=== PATIENT | male | born 1970 | race Caucasian/White ===

== ENCOUNTER 2017-10-21 13:01 | Observation (INO) | payer OTHER ==
--- NOTE | 2017-10-21 13:12 | EDPHY ---
H & P Time Seen by Provider: 10/21/17 13:10 HPI/ROS: CHIEF COMPLAINT: Irregular heartbeat HISTORY OF PRESENT ILLNESS: This patient is a healthy 46 y/o male presenting for evaluation of irregular heartbeat. He felt well yesterday, but woke this morning with a pounding heart sensation. This has happened a couple times in the past, but generally resolves quickly on its own. Today, this feeling has not resolved, and he has felt lightheaded upon standing. No other associated sx. He had three alcoholic drinks last night, which is unusual for him. He denies known personal history of heart problems, but his family history is positive for atrial fibrillation in his father. His last oral intake was oatmeal and coffee about two hours prior to arrival. He was noted to be hypotensive at triage at 87/70, and states he generally has low blood pressure between 90-100 systolic. He denies any recent illness, cough, cold, or fever. He denies chest pain or shortness of breath. No nausea, vomiting, diarrhea, urinary complaints, or other associated symptoms. REVIEW OF SYSTEMS: A 10 point review of systems was performed and is negative with the exception of the elements mentioned in the history of present illness. Past Medical/Surgical History: Denies. Social History: Nonsmoker. . Lives in [place]. Smoking Status: Never smoked Physical Exam: General Appearance: Alert, pleasant Eyes: Pupils equal and round, no conjunctival pallor or injection ENT, Mouth: Mucous membranes moist Neck: Normal inspection Respiratory: Lungs are clear to auscultation Cardiovascular: Irregularly irregular tachycardia Gastrointestinal: Abdomen is soft and non-tender Neurological: A&O, nonfocal exam Skin: Warm and dry, no rash Extremities: Nontender, no pedal edema Psychiatric: Mood and affect normal Constitutional: Initial Vital Signs Temperature (C) 36.5 C 10/21/17 13:03 Heart Rate 75 10/21/17 13:03 Respiratory Rate 18 10/21/17 13:03 Blood Pressure 87/70 L 10/21/17 13:03 O2 Sat (%) 98 10/21/17 13:03 O2 Delivery Mode Room Air Allergies/Adverse Reactions: No Known Allergies Allergy (Verified 10/21/17 13:06) Home Medications: Medication Instructions Recorded Herbals/Supplements -Info Only 1 ea PO AD 12/31/17 Multivitamins [Multivitamin (*)] 1 each PO DAILY 10/21/17 Medical Decision Making - Diagnostics EKG Interpretation: EKG interpreted by me reveals atrial fibrillation, ventricular rate 114, no ST/ T changes. Interpretation: abnormal EKG, atrial fibrillation with RVR Imaging Results: Imaging Impressions Chest X-Ray 10/21/17 14:03 Impression: Nothing acute identified. Imaging: I viewed and interpreted images myself ED Course/Re-evaluation: 46 y/o male presents for evaluation of irregular heartbeat. On exam, he has irregularly irregular tachycardia. EKG shows atrial fibrillation, ventricular rate 114. The patient was hypotensive at triage at 87/70. IV established. Plan to administer 1L IV NS to increase the patient's blood pressure prior to administration of antiarrhythmic medications. Plan for labs including CBC, BMP, D-dimer, TSH. 13:54 Patient's BP 110/79. Plan to administer 10mg IV Diltiazem for rate control. Plan for chest x-ray. Patient initially declined antiarrhythmic medication in favor of attempting to control his heart rate with meditation, but upon further discussion, he agrees to proceed with Diltiazem administration. Discussed admission as well. He agrees to admission for further evaluation. Chest x-ray negative for acute processes. Labs reviewed. D-dimer is negative. Labs otherwise unremarkable. Blood pressure remains stable at 118/68. Blood pressure 90/60 after IV diltiazem 10 mg. 14:[address] Yuan, hospitalist. He accepts admission for rapid atrial fibrillation. 15:15 The patient remains in atrial fibrillation, with a ventricular rate of 72 , blood pressure 89/67. He normally has a low blood pressure and is asymptomatic with this blood pressure. IV fluids infusing. Differential Diagnosis: Differential diagnosis includes though it is not limited to pneumonia, pneumothorax, pulmonary embolism, aortic dissection, pericarditis, acute coronary syndrome. Critical Care Time: I spent a total of 35 minutes of critical care time in obtaining history, performing a physical exam, bedside monitoring of interventions, collecting and interpreting tests and discussion with consultants but not including time spent performing procedures. - Data Points Laboratory Results: Laboratory Results 10/21/17 13:15 10/21/17 13:15 10/21/17 10/21/17 10/21/17 13:15 13:15 13:15 WBC 7.76 10^3/uL 10^3/uL (3.80-9.50) RBC 5.47 10^6/uL 10^6/uL (4.40-6.38) Hgb 17.4 g/dL g/dL (13.7-17.5) Hct 49.2 % % (40.0-51.0) MCV 89.9 fL fL (81.5-99.8) MCH 31.8 pg pg (27.9-34.1) MCHC 35.4 g/dL g/dL (32.4-36.7) RDW 13.1 % % (11.5-15.2) Plt Count 225 10^3/uL 10^3/uL (150-400) MPV 10.2 fL fL (8.7-11.7) Neut % (Auto) 58.6 % % (39.3-74.2) Lymph % (Auto) 29.6 % % (15.0-45.0) [place] % (Auto) 9.5 % % (4.5-13.0) Eos % (Auto) 1.5 % % (0.6-7.6) Baso % (Auto) 0.5 % % (0.3-1.7) Nucleat RBC Rel Count 0.0 % % (0.0-0.2) Absolute Neuts (auto) 4.54 10^3/uL 10^3/uL (1.70-6.50) Absolute Lymphs (auto) 2.30 10^3/uL 10^3/uL (1.00-3.00) Absolute Monos (auto) 0.74 10^3/uL 10^3/uL (0.30-0.80) Absolute Eos (auto) 0.12 10^3/uL 10^3/uL (0.03-0.40) Absolute Basos (auto) 0.04 10^3/uL 10^3/uL (0.02-0.10) Absolute Nucleated RBC 0.00 10^3/uL 10^3/uL (0-0.01) Immature Gran % 0.3 % % (0.0-1.1) Immature Gran # 0.02 10^3/uL 10^3/uL (0.00-0.10) D-Dimer < 0.27 ug/mLFEU ug/mLFEU (0.00-0.50) Sodium 144 mEq/L mEq/L (134-144) Potassium 4.2 mEq/L mEq/L (3.5-5.2) Chloride 106 mEq/L mEq/L (97-110) Carbon Dioxide 28 mEq/l mEq/l (22-31) Anion Gap 10 mEq/L mEq/L (8-16) BUN 15 mg/dL mg/dL (7-23) Creatinine 0.9 mg/dL mg/dL (0.7-1.3) Estimated GFR > 60 Glucose 97 mg/dL mg/dL (70-100) Calcium 10.0 mg/dL mg/dL (8.5-10.4) TSH 3.440 uIU/mL uIU/mL (0.465-4.680) Medications Given: Discontinued Medications Diltiazem HCl (Cardizem 25 Mg/5 Ml Vial) 10 mg IVP EDNOW ONE Stop: 10/21/17 13:55 Last Admin: 10/21/17 14:37 Dose: 10 mg Sodium Chloride (Ns) 1,000 mls @ 0 mls/hr IV ONCE ONE; Wide Open PRN Reason: Protocol Stop: 10/21/17 13:21 Last Admin: 10/21/17 13:34 Dose: 1,000 mls Departure - Departure Disposition: [facility] Inpatient Acute Clinical Impression: Atrial fibrillation with RVR Condition: Fair Report Scribed for: Sofy Salguero Report Scribed by: Anahy Rothman Date of Report: 10/21/17 Time of Report: 13:12 Physician Review and Approval Statement: 10/21/17 13:12 Portions of this note were transcribed by a biomedical electronics technician. I personally performed a history, physical exam, medical decision making, and confirmed accuracy of information the transcribed note.
--- NOTE | 2017-10-21 13:13 | CPEKG ---
Heart Rate: 114 RR Interval: 526 QRSD Interval: 80 QT Interval: 324 QTC Interval: 447 QRS [place]: 57 T Wave [place]: 67 EKG Severity - ABNORMAL ECG - EKG Impression: ATRIAL FIBRILLATION, V-RATE 67-143 EKG Impression: BORDERLINE T ABNORMALITIES, ANT-LAT LEADS Electronically Signed By: Sofy Salguero 21-Oct-2017 15:52:55
[2017-10-21 13:20] LABS: PLATELET COUNT 225 10^3/uL (150-400)
[2017-10-21] MEDS ORDERED: NS 1,000 ML IV ONE (13:20)
[2017-10-21] MEDS ORDERED: DILTIAZEM 25 MG/5 ML VIAL IVP ONE (13:54)
--- NOTE | 2017-10-21 14:44 | PDGENHP ---
History and Physical - Chief Complaint irregular heart beat - History of Present Illness 46 y/o male awoke at 0600 with an irregular heart beat. Some lightheadedness with standing. No chest pain or shortness of breath. Reports episodes of palpitations in the past usually associated with alcohol. Reports having 3 whiskey drinks last night. He was given 5 mg of IV diltiazem in the emergency department which is did improve his rate. History Information - Allergies/Home Medication List Allergies/Adverse Reactions: No Known Allergies Allergy (Verified 10/21/17 13:06) Home Medications: Herbals/Supplements -Info Only 1 ea PO AD 10/21/17 [Last Taken Unknown] Multivitamins [Multivitamin (*)] 1 each PO DAILY 10/21/17 [Last Taken 10/20/17] I have personally reviewed and updated: family history, medical history, social history, surgical history - Past Medical History Additional medical history: none - Surgical History Additional surgical history: bilat knee scopes - Social History Smoking Status: Never smoked Alcohol Use: Occasionally Drug Use: None Review of Systems Review of Systems: ROS: 10pt was reviewed & negative except for what was stated in HPI & below Respiratory: Reports: other (apnea) Physical Exam Physical Exam: Temp Pulse Resp BP Pulse Ox 36.5 C 133 H 16 118/68 96 10/21/17 13:03 10/21/17 14:25 10/21/17 14:25 10/21/17 14:25 10/21/17 14:25 Constitutional: no apparent distress, appears nourished, not in pain Eyes: PERRL, anicteric sclera, EOMI Ears, Nose, Mouth, Throat: moist mucous membranes, hearing normal, ears appear normal, no oral mucosal ulcers Cardiovascular: no murmur, rub, or gallop, irregularly irregular, No JVD, No edema Respiratory: no respiratory distress, no rales or rhonchi, clear to auscultation Gastrointestinal: normoactive bowel sounds, soft, non-tender abdomen, no palpable masses Genitourinary: no bladder fullness, no bladder tenderness Skin: warm, normal color, no rashes or abrasions, no fluctuance, no induration, No mottled Musculoskeletal: full muscle strength, no muscle tenderness, normal joint ROM, no joint effusions Neurologic: AAOx3, CN II-XII Intact, No facial droop Psychiatric: interacting appropriately, not anxious, not encephalopathic, thought process linear Lymph, Heme, Immunologic: no cervical LAD, no supraclavicular LAD Lab Data & Imaging Review 10/21/17 13:15 10/21/17 13:15 WBC 7.76 10^3/uL (3.80-9.50) 10/21/17 13:15 RBC 5.47 10^6/uL (4.40-6.38) 10/21/17 13:15 Hgb 17.4 g/dL (13.7-17.5) 10/21/17 13:15 Hct 49.2 % (40.0-51.0) 10/21/17 13:15 MCV 89.9 fL (81.5-99.8) 10/21/17 13:15 MCH 31.8 pg (27.9-34.1) 10/21/17 13:15 MCHC 35.4 g/dL (32.4-36.7) 10/21/17 13:15 RDW 13.1 % (11.5-15.2) 10/21/17 13:15 Plt Count 225 10^3/uL (150-400) 10/21/17 13:15 MPV 10.2 fL (8.7-11.7) 10/21/17 13:15 Neut % (Auto) 58.6 % (39.3-74.2) 10/21/17 13:15 Lymph % (Auto) 29.6 % (15.0-45.0) 10/21/17 13:15 [place] % (Auto) 9.5 % (4.5-13.0) 10/21/17 13:15 Eos % (Auto) 1.5 % (0.6-7.6) 10/21/17 13:15 Baso % (Auto) 0.5 % (0.3-1.7) 10/21/17 13:15 Nucleat RBC Rel Count 0.0 % (0.0-0.2) 10/21/17 13:15 Absolute Neuts (auto) 4.54 10^3/uL (1.70-6.50) 10/21/17 13:15 Absolute Lymphs (auto) 2.30 10^3/uL (1.00-3.00) 10/21/17 13:15 Absolute Monos (auto) 0.74 10^3/uL (0.30-0.80) 10/21/17 13:15 Absolute Eos (auto) 0.12 10^3/uL (0.03-0.40) 10/21/17 13:15 Absolute Basos (auto) 0.04 10^3/uL (0.02-0.10) 10/21/17 13:15 Absolute Nucleated RBC 0.00 10^3/uL (0-0.01) 10/21/17 13:15 Immature Gran % 0.3 % (0.0-1.1) 10/21/17 13:15 Immature Gran # 0.02 10^3/uL (0.00-0.10) 10/21/17 13:15 D-Dimer < 0.27 ug/mLFEU (0.00-0.50) 10/21/17 13:15 Sodium 144 mEq/L (134-144) 10/21/17 13:15 Potassium 4.2 mEq/L (3.5-5.2) 10/21/17 13:15 Chloride 106 mEq/L (97-110) 10/21/17 13:15 Carbon Dioxide 28 mEq/l (22-31) 10/21/17 13:15 Anion Gap 10 mEq/L (8-16) 10/21/17 13:15 BUN 15 mg/dL (7-23) 10/21/17 13:15 Creatinine 0.9 mg/dL (0.7-1.3) 10/21/17 13:15 Estimated GFR > 60 10/21/17 13:15 Glucose 97 mg/dL (70-100) 10/21/17 13:15 Calcium 10.0 mg/dL (8.5-10.4) 10/21/17 13:15 TSH 3.440 uIU/mL (0.465-4.680) 10/21/17 13:15 Visualized and Interpreted Chest x-ray results: Yes Chest X-Ray results: no infiltrate, normal Visualized and Interpreted EKG results: Yes EKG additional interpertation: AFib rate 114 beats per minute no acute ischemic changes Assessment & Plan Assessment: A 46-year-old male presenting with: # paroxysmal atrial fibrillation in the setting of alcohol use chads Vasc score of 0 -echocardiogram -continue with p.o. diltiazem -monitor on telemetry -check TSH and magnesium levels -will start on empiric anticoagulation Aidan case the patient does opt for cardioversion Place in observation
[2017-10-21] MEDS ORDERED: Herbals/Supplements -Info Only PO SCH (15:30)
[2017-10-21] MEDS ORDERED: ENOXAPARIN 80 MG/0.8 ML SYR SC ONE (17:23)
[2017-10-21] MEDS: DILTIAZEM 30 MG TAB PO SCH (17:26)
[2017-10-21] MEDS ORDERED: ENOXAPARIN 80 MG/0.8 ML SYR SC SCH (21:00)
[2017-10-22] MEDS: DILTIAZEM 30 MG TAB PO SCH (01:36)
[2017-10-22] MEDS ORDERED: ATROPINE SULFATE 1 MG/10 ML SYR IVP ONE (08:10)
[2017-10-22] MEDS ORDERED: NS 1,000 ML IV ONE (08:10)
--- NOTE | 2017-10-22 08:13 | PDHPUP ---
History & Physical Update H&P update statement: This history and physical update is based on an assessment of the patient which was completed after admission or registration (within 24 hours), but prior to the surgery/procedure. H&P update: H&P reviewed & patient examined, no change in patient's condition since H&P completed
--- NOTE | 2017-10-22 08:43 | GCON ---
[f rep st] CONSULTATION CARDIOLOGY CONSULTATION DATE OF CONSULTATION: 10/22/2017 CHIEF COMPLAINT: Atrial fibrillation. HISTORY OF PRESENT ILLNESS: We were asked by Dr. Yuan to visit with the patient. The patient is a pleasant, 46-year-old male with no known cardiovascular history and no ongoing medical problems. Ove r the past several days, with the holidays, he has been eating out quite a bit, drinking more alcohol than usual. On the evening of October 20 he had 3 whiskey drinks, which is unusual for him. He woke up on the morning of October 21 with palpitations and lightheadedness. He felt that his krysten thing was shallow. No chest pain. No syncope. In retrospect, he does report brief episodes of palp itations that have previously occurred when drinking more alcohol than usual, this happens at night. In general, he is very healthy. He exercises regularly, doing yoga, snowboarding, riding his bike. He has never had exertional palpitations or any sort of exertional chest pain. REVIEW OF SYSTEMS: A full 10-point review of systems performed, is negative except that which is det [place] above. ALLERGIES: No known drug allergies. PAST MEDICAL HISTORY: Knee arthroscopy. OUTPATIENT MEDICATIONS: Multivitamin. No other supplements. SOCIAL HISTORY: The patient is a guidance counselor. He does not smoke cigarettes. He does drink a lcohol and has been drinking more alcohol than is customary for him. He is . FAMILY HISTORY: Notable for atrial fibrillation in his father. No premature coronary disease or sung den cardiac . PHYSICAL EXAM: VITAL SIGNS: Blood pressure 100/68, heart rate 67, in AFib, oxygen saturation 94% on room air, respiratory rate is 12. GENERAL: Well-appearing, middle-aged male in no acute distress. HEENT: Sclerae clear and free of jaundice. Mucous membranes moist. CARDIOVASCULAR: JVP less than 10. HEART: Irregularly irregular rhythm without murmur. No S3. LUNGS: Clear to auscultation tita aterally without wheezes, rhonchi, or rales. ABDOMEN: Soft, nontender, nondistended without bruits, masses or hepatosplenomegaly. EXTREMITIES: Warm and well perfused without cyanosis, clubbing, or e stephany. NEURO: Alert and oriented x3 without gross focal neurologic deficits. LABORATORY DATA: CBC is normal. D-dimer is less than 0.27. Basic metabolic panel is normal. AST i s 70, ALT 79. TSH normal. Albumin normal. Magnesium 1.9. EKG, reviewed by me, atrial fibrillation without ischemic changes. Chest x-ray, reviewed by me, no acute cardiopulmonary process. ASSESSMENT AND PLAN: A 46-year-old male with new onset atrial fibrillation triggered most likely by heavier than usual alcohol use. He is currently hemodynamically stable, but still symptomatic. No e vidence of cardiac ischemia or heart failure. We had a discussion about management strategies includ ing anticoagulation and rate control versus OSWALDO guided cardioversion. He prefers OSWALDO guided cardiove rsion as he is still symptomatic. 1. Atrial fibrillation: As above. OSWALDO cardioversion this morning. He agrees to 1 month of post ca rdioversion Eliquis. Bleeding risks associated with Eliquis were reviewed. Risks, benefits, alterna tives of the procedure were discussed. 2. Elevated liver function tests: This is likely related to his recent alcohol use. He agrees to a bstain for several days and overall decrease his alcohol intake. This should be followed up in the o utpatient setting with repeat liver function tests in approximately 2 weeks. 3. He should establish care with a primary care provider. Follow up with me in 1-2 weeks at [facility]. If he is stable post cardioversion, he may be discharged later today. /[id number]/MODL
[2017-10-22 08:54] VITALS: TEMP 97.7
[2017-10-22] MEDS ORDERED: APIXABAN 5 MG TAB PO SCH (09:00)
[2017-10-22] MEDS ORDERED: MULTIVITAMINS 1 EACH TAB PO SCH (09:00)
--- NOTE | 2017-10-22 09:18 | PDANEPAE ---
ANE History of Present Illness OSWALDO CV ANE Past Medical History - Cardiovascular History Hx Arrhythmias: Yes - Pulmonary History Hx Oxygen in Use at Home: No Hx Sleep Apnea: No - Endocrine History Hx Diabetes: No - Chronic Pain History Chronic Pain: No ANE Review of Systems Review of systems is: negative Review of Systems: - Exercise capacity Exercise capacity: >=4 METS ANE Patient History - Allergies Allergies/Adverse Reactions: No Known Allergies Allergy (Verified 10/21/17 13:06) - Home Medications Home medications: home medication list seen and reviewed Home Medications: Herbals/Supplements -Info Only 1 ea PO AD 10/21/17 [Last Taken Unknown] Multivitamins [Multivitamin (*)] 1 each PO DAILY 10/21/17 [Last Taken 10/20/17] - NPO status NPO Status: no food or drink >8 hours - Anes Hx Anes Hx: no prior problems - Smoking Hx Smoking Status: Never smoked - Alcohol Use Alcohol Use: Occasionally - Family Anes Hx Family Anes Hx: none ANE Labs/Vital Signs - Labs Result Diagrams: 10/21/17 13:15 10/21/17 13:15 - Vital Signs Blood Pressure: 103/67 Heart Rate: 71 Respiratory Rate: 23 O2 Sat (%): 99 Height: 187.96 cm Weight: 83 kg ANE Physical Exam - Airway Neck exam: FROM Mallampati Score: Class 2 - Pulmonary Pulmonary: no respiratory distress - Cardiovascular Cardiovascular: irregularly irregular - ASA Status ASA Status: II ANE Anesthesia Plan Total IV Anesthesia: Yes
--- NOTE | 2017-10-22 09:19 | POSTANESTH ---
Post Anesthetic Evaluation Cardiovascular Status: Normal, Stable Respiratory Status: Normal, Stable Level of Consciousness/Mental Status: Can Participate in Eval, Mildly Sleepy, Arousable Pain Control: Adequate, Prn Tx Ordered Nausea/Vomiting Control: Adequate, Prn Tx Ordered Complications Possibly Related to Anesthesia: None Noted
[2017-10-22] MEDS ORDERED: PROPOFOL 200 MG/20 ML VIAL ONE ×2 (09:20)
[2017-10-22] MEDS ORDERED: BENZOCAINE UNIT DOSE SPRAY HURRICAINE MM PRN (09:35)
--- NOTE | 2017-10-22 10:23 | PDTEE1 ---
OSWALDO Cardioversion Procedure Procedure: electrical cardioversion, transesophageal echo Indications: atrial fibrillation Consent: signed and in chart Anticoagulation: lovenox Procedural Details: Pads were placed in anterior-posterior position. Sedation provided by the anesthesia service. OSWALDO probe was advanced and standard images obtained. There is no evidence of left atrial or left atrial appendage thrombus. Synchronized cardioversion attempt #1: 200J Results: normal sinus rhythm Conclusions: successful OSWALDO cardioversion Patient Problems: Problems Problem Status Onset Atrial fibrillation with RVR Acute
--- NOTE | 2017-10-22 10:43 | CPIP ---
[f rep st] INVASIVE CARDIAC PROCEDURE DATE OF PROCEDURE: 10/22/2017 INDICATIONS: Symptomatic atrial fibrillation. COMPLICATIONS: None. PROCEDURE: The patient was n.p.o. Informed consent obtained. Time-out performed. Sedation was pro vided by Dr. Evans Hilton of the Anesthesia service. It was somewhat difficult esophageal intubati on with the OSWALDO probe, ultimately requiring direct visualization with the GlideScope. [facility]. In summary, normal LV size and systolic function. Mild to moderate mitral regurgi tation. No intracardiac thrombus. Small PFO. We elected to proceed with cardioversion. The patient received a single 200 joule synchronized shock which converted him from atrial fibrillation to normal sinus rhythm. A 12-lead EKG is pending. CONCLUSIONS: Successful OSWALDO guided cardioversion. Eliquis 5 mg twice daily for 1 month. Follow up with Dr. Rodriguez at [facility] in 1-2 weeks. If patient remains stable, may be discharged later danny pisano /[id number]/MODL
[2017-10-22 14:20] VITALS: PULSE 80; RESP 16; O2SAT 94
[2017-10-22 14:21] VITALS: BP 91/61
--- NOTE | 2017-10-22 16:16 | ASDISCHSUM ---
Discharge Information Plan Status:Home with No Needs Medically Cleared to Leave:10/21/2017 Discharge Date:10/22/2017 02:38 PM CM D/C Disposition: ADT D/C Disposition:Home, Routine, Self-Care Projected Discharge Date:10/22/2017 12:00 AM Transportation at D/C: Discharge Delay Reason: Follow-Up Date:10/22/2017 12:00 AM Discharge Slot: Final Diagnosis: Placement Information Patient Contact Information Contact Name:LYNDON Relationship: Address:[address] City:[place] Alternate Phone: [facility]/Zip Code:[place] [address] Email: Financial Information Financial Class:[employer] Primary Plan Desc:[employer] OPEN ACC LOCAL Primary Plan Number:[id number] Secondary Plan Desc: Secondary Plan Number: Assessment Information Intervention Information
--- NOTE | 2017-10-22 19:25 | GDS ---
[f rep st] DISCHARGE SUMMARY DISCHARGE DIAGNOSIS: Atrial fibrillation, status post cardioversion. HISTORY: The patient is a 46-year-old male, who woke at 6 o'clock with an irregular heartbeat. On p resentation, he was found to be in a rapid AFib with a heart rate of 133. He was maintained on a dil tiazem drip overnight, and Cardiology was consulted. He underwent OSWALDO with cardioversion this mornin g and is now back to normal sinus rhythm. Dr. Rodriguez recommends Eliquis for 1 month but does not think he needs any chronic treatment with beta shane or calcium channel shane at this time. DISCHARGE MEDICATIONS: Please see computer record for full detailed list. NEW MEDICATIONS: Eliquis 5 mg p.o. b.i.d. for 30 days. ADDITIONAL DISCHARGE INSTRUCTIONS: Follow up with Dr. Rema Rodriguez, 2-3 weeks. The patient was seen and examined by me on the day of discharge. /[id number]/MODL
--- NOTE | 2017-10-23 08:49 | CPEKG ---
Heart Rate: 66 RR Interval: 909 P-R Interval: 188 QRSD Interval: 92 QT Interval: 388 QTC Interval: 407 P [place]: 48 QRS [place]: 51 T Wave [place]: 54 EKG Severity - NORMAL ECG - EKG Impression: SINUS RHYTHM EKG Impression: ST ELEV, PROBABLE NORMAL EARLY REPOL PATTERN Electronically Signed By: Dm Griffin 23-Oct-2017 12:34:06
--- NOTE | 2017-10-23 10:47 | ECHO ---
[email or web address] [address] [address] Main: [phone] Fax: Transesophageal Echocardiography Name: MILLIE PATRICIO MR#: [id number] Study Date: 10/22/2017 Study Time: 08:47 AM Date of : 1970 Age: 46 year(s) Height: ( ) Weight: ( ) BSA: Gender: Male Examination: OSWALDO Indication: Atrial Fibrillation Image Quality: Contrast: Requested by: Rema Rodriguez Heart Rate: Rhythm: BP: 103 mmHg/67 mmHg Procedure Staff Guest Relations Officer: Heidi Newman Physician: Rema Rodriguez Requesting Provider: Josh Yuan OSWALDO Exam Details Patient Consent: Risks, alternatives of procedure explained to patient, informed consent obtained. Exam Location: Bedside Patient Fasting: yes Conclusions: Normal global systolic LV function. An agitated saline study was performed and was negative for intracardiac shunting. No thrombus in left appendage. Mild to moderate mitral regurgitation. Proceed with cardioversion Measurements: Chambers Valvular Assessment AV/MV Valvular Assessment TV/PV Normal Normal Normal Name Value Range Name Value Range Name Value Range Additional Measurements: Findings: Left Ventricle: Normal global systolic LV function. Right Ventricle: Normal size right ventricle. Normal RV function. Left Atrium: Patient: MILLIE PATRICIO Study Date: 10/22/2017 Page 1 of 2 08:47 AM An agitated saline study was performed and was negative for intracardiac shunting. Left Atrial Appendage: No thrombus in left appendage. Mitral Valve: Mild to moderate mitral regurgitation. Aortic Valve: The aortic valve is tri-leaflet. l1n (No Signature Object) Patient: MILLIE PATRICIO Study Date: 10/22/2017 Page 2 of 2 08:47 AM [id number]
== END 2017-10-22 14:38 | disposition home or self-care (01) ==
LOC: F2W 15:27
PROVIDERS: ADMIT Family Medicine; ATTEND Family Medicine
PROC: 5A2204Z Restoration of Cardiac Rhythm, Single (ICD-10-PCS; principal; 2017-10-21)
PROC: B245ZZ4 Ultrasonography of Left Heart, Transesophageal (ICD-10-PCS; principal; 2017-10-21)
DX: I48.0 Paroxysmal atrial fibrillation (principal)
CPT/HCPCS: 71020; 92960; 93005; 93312; G0378; 96374; J1650; J2704